=== PATIENT | female | born 1940 | race Caucasian/White ===

== ENCOUNTER → 2017-01-03 | Outpatient (CLI) | payer MEDICARE, OTHER ==
--- NOTE | 2017-01-06 10:57 | RADIOLOGY REPORT (SQ) ---
EXAM DESCRIPTION: MRI BREAST BILAT W AND/OR WO COMPLETED DATE/TIME: 01/03/2017 3:43 pm REASON FOR STUDY: ABNORMAL AND INCONCLUSIVE FINDINGS R92.8 OTH ABN AND INCONCLUSIVE FINDINGS ON DX IMAGING OF ALESSANDRA L59.9 DISORDER OF THE SKIN, SUBCU RELATED TO RADIATION, UNSP COMPARISON: Mammography 12/25/2016 and multiple priors ultrasound 12/25/2016 PATHOLOGIC CORRELATION: Prior breast cancer left breast. CONTRAST TYPE AND DOSE: 20 mL Prohance. RENAL FUNCTION: GFR > 60. TECHNIQUE: MR imaging performed with a dedicated breast coil. Pre contrast T1 and T2 weighted images . Pre contrast and post contrast enhanced T1 weighted images with fat saturation. Subtraction images, 3D thick and thin MIPS, and kinetic analysis performed on an independent workstat ion. ([employer] workstation) Magnet strength: 1.5 T LIMITATIONS: None. FINDINGS: BREAST DENSITY: b. There are scattered areas of fibroglandular density. BACKGROUND PARENCHYMAL ENHANCEMENT:Minimal. RIGHT BREAST: No enhancing or suspicious masses. No clumped, regional/segmental ductal enhancement. CHEST WALL: Normal tissue planes. No abnormal internal mammary nodes. AXILLA: Normal axillary and retro-pectoral nodes. LEFT BREAST:There are multiple suspicious enhancing mass lesions. Lesion 1: Upper outer quadrant, p ossibly abnormal lymph node 1.4 cm. Lesion 2: Upper inner quadrant 5.6 mm. Lesion 3: Upper outer quadrant 1.3 cm. Lesion 4: Central lower half of the breast, multiple nodules 2 cm inclusive. Lesi on 5: Lower inner quadrant 5.3 mm. Lesion 6: Lower inner quadrant 5.9 mm. No clumped, regional/se gmental ductal enhancement. CHEST WALL: Normal tissue planes. No abnormal internal mammary nodes. AXILLA: Normal axillary and retro-pectoral nodes. OTHER:No identified liver, bone, or lung lesions. No other significant incidental findings. IMPRESSION: Multiple suspicious mass lesions in the left breast in multiple quadrants. Some may be abnormal intramammary lymph nodes. BIRAD: RIGHT BREAST: 1 Negative. LEFT BREAST: 4 Suspicious. Biopsy should be considered. RECOMMENDATION: RECOMMENDED FOLLOW-UP: Identify, by ultrasound if possible, lesions in different tung drants. Biopsy at least 2 of the lesions. . TECHNICAL DOCUMENTATION: JOB ID: [id number]- All Rights Reserved
== END ==
LOC: RAD 13:27
DX: R92.8 Other abnormal and inconclusive findings on diagnostic imaging of breast (principal); N64.59 Other signs and symptoms in breast; L59.9 Disorder of the skin and subcutaneous tissue related to radiation, unspecified
CPT/HCPCS: A9576; C8906; 77059

== ENCOUNTER 2018-05-18 08:05 | Day surgery (SDC) | payer MEDICARE, OTHER ==
[~2018-05-18 08:05] MED LIST: PROPOFOL INJ 200 MG/20 ML VIAL IV ONE
[2018-05-18 10:26] VITALS: BP 117/62
--- NOTE | 2018-05-18 13:11 | Operative Report ---
Operative Report DATE OF SURGERY: 05/18/18 Operative Report: The risks, benefits and alternatives of the procedure including the risk of bleeding, perforation requiring surgery are explained to the patient in detail and informed consent is obtained. Patient is placed in a left, lateral decubital position. Timeout was called. Propofol medication is administered. A rectal examination is done which did not reveal any masses, tears or fissures. An Olympus videoscope was introduced into the patient's rectum. The scope was then carefully advanced all the way to the cecum. The cecum was identified by the usual anatomical landmarks including the ileocecal valve as well as the appendiceal office. Photodocumentation is obtained. The scope was then sequentially pulled back via the rest segments of the colon including the ascending colon, hepatic flexure, transverse colon, splenic flexure, descending colon and finally in to the rectosigmoid portions of the colon. Retroflexion maneuvers performed. PREOPERATIVE DIAGNOSIS: Personal history of polyp POSTOPERATIVE DIAGNOSIS: Right side colon, small sessile polyp status post biopsy. Diverticulosis. Internal hemorrhoids OPERATION: Colonoscopy with biopsy SURGEON: KARISSA CORNEJO ANESTHESIA: LMAC TISSUE REMOVED OR ALTERED: As noted above. COMPLICATIONS: None. ESTIMATED BLOOD LOSS: None. INTRAOPERATIVE FINDINGS: As noted above. PROCEDURE: Patient tolerated the procedure well. No immediate postprocedure complications are noted. Patient discharged in good condition. Discharge date 05/18/2018. Discharge diet: Regular. Discharge activity: Regular. 2-3-week follow-up to discuss findings. Patient is instructed to call the office or proceed to the emergency room should there be any further questions. Wait on pathology.
--- NOTE | 2018-05-18 13:15 | EKG REPORT ---
SEVERITY:- ABNORMAL ECG - SINUS RHYTHM ABNRM R PROG, CONSIDER ASMI OR LEAD PLACEMENT : Confirmed by: Armaan Sanchez MD 18-May-2018 13:13:59
== END 2018-05-18 10:15 | disposition home or self-care (01) ==
LOC: END 08:05
PROVIDERS: ATTEND Internal Medicine Gastroenterology
DX: Z12.11 Encounter for screening for malignant neoplasm of colon (principal); K57.30 Diverticulosis of large intestine without perforation or abscess without bleeding; K64.8 Other hemorrhoids; D12.6 Benign neoplasm of colon, unspecified; Z86.010 Personal history of colon polyps; M19.90 Unspecified osteoarthritis, unspecified site; Z79.899 Other long term (current) drug therapy; Z09 Encounter for follow-up examination after completed treatment for conditions other than malignant neoplasm; Z85.3 Personal history of malignant neoplasm of breast; Z85.828 Personal history of other malignant neoplasm of skin; Z87.19 Personal history of other diseases of the digestive system
CPT/HCPCS: 45380; 88305 ×2; 93005; 93010; J2704; 811